=== PATIENT | female | born 1985 | race Caucasian/White ===

== ENCOUNTER 2020-06-30 15:46 | Emergency (ER) | payer MEDICAID, OTHER ==
[~2020-06-30] VITALS: Ht 172.7 cm; Wt 85.9 kg
[~2020-06-30 15:46] MED LIST: MECL12.575 PO; NORTRIPTYLINE PO; Prednisone PO; TYLE325T5 PO; [UNRECOGNIZED DRUG - CODE] PO; [UNRECOGNIZED DRUG - OTHER] PO
[2020-06-30 15:54] VITALS: BP 135/84
[2020-06-30] MEDS ORDERED: SERT50TA29 (15:59)
[2020-06-30] MEDS ORDERED: PROP10TA56 (15:59)
[2020-06-30] MEDS ORDERED: HYDR200T3 (15:59)
[2020-06-30] MEDS ORDERED: BUSP10TA (15:59)
[2020-06-30] MEDS ORDERED: CYCL-707 (15:59)
--- NOTE | 2020-06-30 16:38 | REP ---
INDICATION: pain, bruising COMPARISON: None. TECHNIQUE: Real time compression and duplex Doppler interrogation of the left lower extremity deep venous system is performed. FINDINGS: The left common femoral, superficial femoral and popliteal veins are fully compressible with transducer pressure and demonstrate normal spontaneous and phasic flow, without evidence of deep venous thrombosis. IMPRESSION: No evidence of deep venous thrombosis of the left lower extremity femoral popliteal venous system. <Electronically signed by Dexter Villanueva > 06/30/20 [id number]
[2020-06-30 17:13] LABS: BASO % 0.5 % (0.0-1.0); EOS # 0.2 10^3/uL (0.0-0.5); EOS % 3.1 % (0.0-3.0); HEMATOCRIT 41.6 % (36.0-47.0); HEMOGLOBIN 13.8 g/dl (12.0-15.5); LYMPH # 3.8 10^3/uL (1.5-5.0); LYMPH % 48.5 % (24.0-44.0); MEAN CORPUSCULAR HEMOGLOBIN 29.6 pg (27.0-33.0); MEAN CORPUSCULAR HGB CONC 33.2 g/dl (32.0-36.5); MEAN CORPUSCULAR VOLUME 89.3 fl (80.0-96.0); MONO # 0.5 10^3/uL (0.0-0.8); MONO % 6.5 % (2.0-8.0); NEUTROPHILS # 3.2 10^3/uL (1.5-8.5); NEUTROPHILS % 41.1 % (36.0-66.0); PLATELET COUNT, AUTOMATED 284 10^3/uL (150-450); RED BLOOD COUNT 4.66 10^6/uL (4.00-5.40); WHITE BLOOD COUNT 7.9 10^3/uL (4.0-10.0)
[2020-06-30 17:23] LABS: ALBUMIN 4.1 GM/DL (3.2-5.2); BILIRUBIN,TOTAL 0.8 MG/DL (0.2-1.0); CALCIUM LEVEL 9.2 MG/DL (8.5-10.1); CREATININE FOR GFR 1.12 MG/DL (0.55-1.30); GLOMERULAR FILTRATION RATE 58.6 (>60); POTASSIUM SERUM 3.9 MEQ/L (3.5-5.1); TOTAL PROTEIN 7.3 GM/DL (6.4-8.2)
[2020-06-30 17:25] LABS: PERCENT SATURATION 24.8 % (13.2-45.0)
[2020-06-30 17:31] LABS: INR 0.99; PROTHROMBIN TIME 13.3 SECONDS (12.5-14.3)
[2020-06-30 17:32] LABS: PARTIAL THROMBOPLASTIN TIME 26.9 SECONDS (24.2-38.5)
[2020-06-30 17:33] LABS: FOLATE 18.9 NG/ML (>5.4)
== END 2020-06-30 17:53 | disposition home or self-care (01) ==
LOC: M ED 15:46
DX: R23.3 Spontaneous ecchymoses (principal); R53.83 Other fatigue; G43.909 Migraine, unspecified, not intractable, without status migrainosus; Z88.0 Allergy status to penicillin; Z88.1 Allergy status to other antibiotic agents; Z88.5 Allergy status to narcotic agent; Z88.8 Allergy status to other drugs, medicaments and biological substances

== ENCOUNTER 2020-11-11 14:59 | Emergency (ER) | payer MEDICAID, OTHER ==
[~2020-11-11] VITALS: Ht 172.7 cm; Wt 79.7 kg
[~2020-11-11 14:59] MED LIST changes: +BUSP10TA; +CYCL-707; +HYDR200T3; +PROP10TA56; +SERT50TA29
[2020-11-11 15:49] LABS: BASO % 0.5 % (0.0-1.0); EOS # 0.2 10^3/uL (0.0-0.5); HEMATOCRIT 39.2 % (36.0-47.0); HEMOGLOBIN 13.1 g/dl (12.0-15.5); LYMPH # 2.4 10^3/uL (1.5-5.0); LYMPH % 32.8 % (24.0-44.0); MEAN CORPUSCULAR HEMOGLOBIN 30.4 pg (27.0-33.0); MEAN CORPUSCULAR HGB CONC 33.4 g/dl (32.0-36.5); MONO # 0.6 10^3/uL (0.0-0.8); MONO % 8.2 % (2.0-8.0); NEUTROPHILS # 4.2 10^3/uL (1.5-8.5); NEUTROPHILS % 56.2 % (36.0-66.0); PLATELET COUNT, AUTOMATED 245 10^3/uL (150-450); RED BLOOD COUNT 4.31 10^6/uL (4.00-5.40); WHITE BLOOD COUNT 7.4 10^3/uL (4.0-10.0)
[2020-11-11 16:13] LABS: HCG, SERUM QUALITATIVE NEGATIVE (NEGATIVE)
[2020-11-11 16:15] LABS: ALBUMIN 4.2 GM/DL (3.2-5.2); ALT/SGPT 31 U/L (12-78); BILIRUBIN,DIRECT 0.3 MG/DL (0.0-0.2); BLOOD UREA NITROGEN 18 MG/DL (7-18); CALCIUM LEVEL 9.3 MG/DL (8.5-10.1); CARBON DIOXIDE LEVEL 27 MEQ/L (21-32); CHLORIDE LEVEL 107 MEQ/L (98-107); CREATININE FOR GFR 1.05 MG/DL (0.55-1.30); GLOMERULAR FILTRATION RATE > 60.0 (>60); GLUCOSE, FASTING 82 MG/DL (70-100); LIPASE 197 U/L (73-393); POTASSIUM SERUM 3.8 MEQ/L (3.5-5.1); SODIUM LEVEL 140 MEQ/L (136-145); TOTAL PROTEIN 7.4 GM/DL (6.4-8.2)
[2020-11-11] MEDS ORDERED: ONDANSETRON 4 MG ORAL DISINTEGRATING TAB PO ONE (16:55)
[2020-11-11] MEDS ORDERED: KETOROLAC 60MG 2ML VIAL IM ONE (16:55)
--- NOTE | 2020-11-11 17:56 | REP ---
INDICATION: right flank pain, UTI per UA, r/o stone/pyelo. COMPARISON: CT 12/07/2012 TECHNIQUE: Bilateral renal sonography with color images over the bladder. FINDINGS: Sonographic evaluation shows the right kidney 11 x 5.7 x 6.1 cm. The left is 11.4 x 4.7 by 5.6 cm. Cortical echogenicity and thickness is normal on both sides. There is no hydronephrosis or hydroureter. I see no solid or cystic mass for either kidney nor echogenic foci to suggest a stone. No perinephric fluid. Bladder only partially filled but vigorous bilateral ureteral jets are observed. No layering debris or stones suggested in the bladder. IMPRESSION: 1. Kidneys of symmetric size and normal echogenicity. No hydronephrosis, mass, cyst, stone or perinephric fluid. No heterogeneous echotexture or asymmetric size to suggest pyelonephritis by sonography. 2. The bladder partially filled. Symmetric, vigorous bilateral ureteral jet phenomenon. No layered debris, stone or other significant finding visible. <Electronically signed by Lyle Cline > 11/11/20 [id number]
[2020-11-11] MEDS ORDERED: BACT800T5 PO (18:24)
[2020-11-11] MEDS ORDERED: REGL10TA6 PO (18:24)
[2020-11-11 18:33] VITALS: BP 139/91
== END 2020-11-11 18:38 | disposition home or self-care (01) ==
LOC: M ED 14:59
DX: N39.0 Urinary tract infection, site not specified (principal); R51.9 Headache, unspecified; M32.9 Systemic lupus erythematosus, unspecified; R06.02 Shortness of breath; Z79.899 Other long term (current) drug therapy; Z88.0 Allergy status to penicillin; Z88.1 Allergy status to other antibiotic agents; Z88.5 Allergy status to narcotic agent; Z88.8 Allergy status to other drugs, medicaments and biological substances
CPT/HCPCS: 76775; 80048; 80076; 81001; 83690; 84703; 85025; 87088; 87186; 96372; 99284; J1885; Q0162

== ENCOUNTER → 2021-04-06 | Outpatient (CLI) | payer OTHER ==
[~2021-04-06] MED LIST changes: +BACT800T5 PO; +REGL10TA6 PO
--- NOTE | 2021-04-06 09:40 | PFTRPT ---
Site: [facility], [address] [place] [address], [id number] ID: [id number] Name: VIELKA STOVER Visit Date: 04/06/2021 Second ID: [id number] Referring Doctor: Georgie Benavidez M.D. Reviewing Doctor: Philip Pham MD Folder Machine: Lois CANTU RRT Age: 36 : 1985 Sex: Female Race: Height: 68.00 Inches Weight: 157.00 Lbs BSA: 1.84 Order IDs: [id number] Requested Test(s): <RESP-PFT.PFT B/A> Diagnosis: M06.9 test meet the ATS standards for acceptability and repeatability. Pt was given four puffs of albuterol for post bronchodilator. Review Status: Not Reviewed Pre-Bronch Post-Bronch Pred Actual %Pred Actual %Chng SPIROMETRY FVC (L) 4.23 3.68 86 3.83 4 FEV1 (L) 3.46 3.07 88 3.23 5 FEV1/FVC (%) 83 83 100 84 1 FEF 25% (L/sec) 5.95 6.56 110 6.43 -1 FEF 50% (L/sec) 4.30 3.84 89 4.58 19 FEF 75% (L/sec) 1.74 1.45 83 1.87 29 FEF 25-75% (L/sec) 3.47 3.19 91 3.75 17 FEF Max (L/sec) 7.63 7.17 93 6.73 -6 FIVC (L) 3.40 3.51 3 FIF 50% (L/sec) 4.01 4.22 105 5.59 32 FIF Max (L/sec) 4.25 5.65 33 MVV (L/min) 113 102 90 Expiratory Time (sec) 7.04 6.35 -9 Back Extrap Vol (L) 0.11 0.12 1 Time To FEFmax (sec) 0.087 0.096 10 LUNG VOLUMES SVC (L) 3.93 3.68 93 IC (L) 2.50 1.80 71 ERV (L) 1.43 1.88 132 TGV (L) 3.15 3.36 106 RV (Pleth) (L) 1.73 1.47 85 TLC (Pleth) (L) 5.65 5.16 91 RV/TLC (Pleth) (%) 30 29 95 DIFFUSION DLCOunc (ml/min/mmHg) 25.81 19.67 76 DL/VA (ml/min/mmHg/L) 4.56 4.22 92 VA (L) 5.65 4.66 82 BHT (sec) 10.38 IVC (L) 3.45 TLC (SB) (L) 4.81 AIRWAYS RESISTANCE Raw (cmH2O/L/s) 1.86 1.39 74 Gaw (L/s/cmH2O) 1.03 0.72 70 sRaw (cmH2O*s) 4.76 4.29 90 sGaw (1/cmH2O*s) 0.20 0.23 114
--- NOTE | 2021-04-07 13:41 | ECHO ---
ECHOCARDIOGRAM DATE OF PROCEDURE: 04/06/2021 Age: 36 Gender: Female Height: 68 inches Weight: 157 pounds Body surface area: 1.84 m2 Outpatient. REFERRING PHYSICIAN: Case Benavidez M.D. INDICATION: Rheumatoid arthritis. MEASUREMENTS: 2D Measurements: RV - 4.0 cm LV - 4.3 cm Septum 0.9 cm Posterior wall 0.9 cm Aortic root 2.8 cm LA - 3.4 cm LVEF 75% Doppler Measurements: AV - 1.51 m/s LVOT - 1.1 m/s LVOT diameter 1.8 cm MV-E 98, A 71, E/A ratio 1.4. Early mitral deceleration time 215 msec E prime medial 8 A prime medial 7 E prime lateral 10.3 PV - 0.9 m/s Pulmonary artery acceleration time 123 msec PASP 27 mmHg IVC - 1.6 cm COMMENTS: Normal sinus rhythm without intraventricular conduction disturbance. M-mode and 2-dimensional echocardiography was performed with pulse, continuous wave, color flow, and tissue Doppler studies. Normal left ventricular size, wall thickness, and hyperkinetic wall motion. Normal left atrial size and Doppler assessment of LV diastolic and estimated mean left atrial pressure. Normal right chamber sizes and motion and estimated pulmonary arterial pressure. Normal IVC size and collapse against an elevated central venous pressure. Normal aortic dimensions. Three equal-sized aortic cusps of normal thickness with normal cusp separation. No insufficiency. Normal-appearing mitral valvular apparatus and leaflet excursion with no posterior systolic buckling. No apparent mitral insufficiency. Normal-appearing tricuspid valve with trace tricuspid insufficiency (physiologic). No apparent intracardiac mass or pericardial effusion.
== END ==
LOC: M CARPUL 08:05
PROVIDERS: ATTEND Pediatrics
DX: R01.1 Cardiac murmur, unspecified (principal); M06.9 Rheumatoid arthritis, unspecified

== ENCOUNTER → 2022-03-01 | Outpatient (REF) | payer OTHER ==
[2022-03-01 18:21] LABS: BASO % 0.5 % (0.0-1.0); EOS # 0.4 10^3/uL (0.0-0.5); EOS % 4.6 % (0.0-3.0); HEMATOCRIT 40.7 % (36.0-47.0); HEMOGLOBIN 13.2 g/dl (12.0-15.5); LYMPH % 36.3 % (24.0-44.0); MEAN CORPUSCULAR HEMOGLOBIN 29.1 pg (27.0-33.0); MEAN CORPUSCULAR HGB CONC 32.4 g/dl (32.0-36.5); MEAN CORPUSCULAR VOLUME 89.8 fl (80.0-96.0); MONO # 0.5 10^3/uL (0.0-0.8); MONO % 5.5 % (2.0-8.0); NEUTROPHILS # 4.4 10^3/uL (1.5-8.5); PLATELET COUNT, AUTOMATED 291 10^3/uL (150-450); RED BLOOD COUNT 4.53 10^6/uL (4.00-5.40); WHITE BLOOD COUNT 8.3 10^3/uL (4.0-10.0)
[2022-03-01 18:42] LABS: ERYTHROCYTE SEDIMENTATION RATE 8 mm/hr (0-20)
[2022-03-01 18:59] LABS: ALT/SGPT 25 U/L (12-78); BILIRUBIN,TOTAL 0.5 MG/DL (0.2-1.0); BLOOD UREA NITROGEN 24 MG/DL (7-18); CALCIUM LEVEL 9.2 MG/DL (8.5-10.1); CARBON DIOXIDE LEVEL 24 MEQ/L (21-32); CHLORIDE LEVEL 107 MEQ/L (98-107); CREATININE FOR GFR 0.96 MG/DL (0.55-1.30); GLOMERULAR FILTRATION RATE > 60.0 (>60); GLUCOSE, FASTING 82 MG/DL (70-100); POTASSIUM SERUM 4.2 MEQ/L (3.5-5.1); RHEUMATOID FACTOR QUANT < 10.0 IU/ML (<15.0); SODIUM LEVEL 140 MEQ/L (136-145); TOTAL PROTEIN 7.4 GM/DL (6.4-8.2)
== END ==
LOC: M LAB REF 17:39
PROVIDERS: ATTEND Pediatrics
DX: M32.9 Systemic lupus erythematosus, unspecified (principal)

== ENCOUNTER 2022-04-19 11:03 | Inpatient (IN) | payer MEDICAID, OTHER ==
[~2022-04-19 11:03] MED LIST changes: -CYCL-707; +CYCL-707 PO; -HYDR200T3; +HYDR200T3 PO
[2022-04-19 12:41] LABS: HEMATOCRIT 42.9 % (36.0-47.0); HEMOGLOBIN 14.1 g/dl (12.0-15.5); MEAN CORPUSCULAR HEMOGLOBIN 29.1 pg (27.0-33.0); MEAN CORPUSCULAR HGB CONC 32.9 g/dl (32.0-36.5); MEAN CORPUSCULAR VOLUME 88.5 fl (80.0-96.0); PLATELET COUNT, AUTOMATED 274 10^3/uL (150-450); RED BLOOD COUNT 4.85 10^6/uL (4.00-5.40); WHITE BLOOD COUNT 5.9 10^3/uL (4.0-10.0)
[2022-04-19 12:54] LABS: AMPHETAMINES LEVEL URINE NEGATIVE (NEGATIVE); BARBITURATES URINE NEGATIVE (NEGATIVE); BENZODIAZEPINES URINE NEGATIVE (NEGATIVE); CANNABINOIDS URINE NEGATIVE (NEGATIVE); COCAINE METABOLITE URINE NEGATIVE (NEGATIVE); METHADONE URINE NEGATIVE (NEGATIVE); OPIATES URINE NEGATIVE (NEGATIVE); PHENCYCLIDINE URINE NEGATIVE (NEGATIVE)
[2022-04-19 12:56] LABS: ETHYL ALCOHOL (ETHANOL) 0.003 % (0.000-0.010)
[2022-04-19 12:57] LABS: BILIRUBIN,DIRECT 0.2 MG/DL (<0.4); SALICYLATE LEVEL < 3.0 MG/DL (<30)
[2022-04-19 12:58] LABS: ACETAMINOPHEN LEVEL < 2.0 UG/ML (10.0-20.0); ALBUMIN 3.6 G/DL (3.2-5.2); ALKALINE PHOSPHATASE 55 U/L (46-116); ALT/SGPT 22 U/L (7.0-40); AST/SGOT 23 U/L (<34); BILIRUBIN,TOTAL 0.5 MG/DL (0.3-1.2); BLOOD UREA NITROGEN 22 MG/DL (9-23); CALCIUM LEVEL 9.1 MG/DL (8.5-10.1); CARBON DIOXIDE LEVEL 21 MMOL/L (20-31); CHLORIDE LEVEL 107 MMOL/L (98-107); CREATININE FOR GFR 0.96 MG/DL (0.55-1.30); GLOMERULAR FILTRATION RATE > 60.0 (>60); GLUCOSE, FASTING 76 MG/DL (60-100); POTASSIUM SERUM 3.9 MMOL/L (3.5-5.1); SODIUM LEVEL 138 MMOL/L (136-145); TOTAL PROTEIN 7.1 G/DL (5.7-8.2)
[2022-04-19 12:59] LABS: THYROID STIMULATING HORMONE 0.856 uIU/ML (0.55-4.78)
[2022-04-19 15:17] LABS: HCG, SERUM QUALITATIVE NEGATIVE (NEGATIVE)
[2022-04-19] MEDS ORDERED: PROPRANOLOL 10 MG TAB PO PRN (15:55)
[2022-04-19] MEDS ORDERED: hydrOXYzine 50 MG TAB PO PRN (15:55)
[2022-04-19] MEDS ORDERED: ACETAMINOPHEN TAB 650MG DOSE (2X325MG) PO PRN (15:55)
[2022-04-19] MEDS ORDERED: MAALOX 30 ML SUSP *UDC PO PRN (15:55)
[2022-04-19] MEDS ORDERED: traZODone 50 MG TAB PO PRN (15:55)
[2022-04-19] MEDS ORDERED: MOM 30ML SUSPENSION UDC PO PRN (15:55)
[2022-04-19 16:21] LABS: RSV AMPLIFICATION NEGATIVE (NEGATIVE)
[2022-04-19 17:27] VITALS: BP 139/97
[2022-04-20 06:36] VITALS: BP 118/64
[2022-04-20] MEDS ORDERED: ALL10TAB2 PO (11:03)
[2022-04-20] MEDS ORDERED: HOME MED LIST COMPLETE! XX SCH (11:10)
[2022-04-20] MEDS: SERTRALINE HCL 50 MG TAB PO SCH (11:30)
[2022-04-20] MEDS: busPIRone 10 MG TAB PO SCH ×2 (11:30→20:50)
[2022-04-20 18:04] VITALS: BP 142/94
[2022-04-20] MEDS ORDERED: RAMELTEON 8 MG TAB (ROZEREM) PO SCH (21:00)
[2022-04-20] MEDS ORDERED: HYDROXYCHLOROQUINE 200 MG TAB PO SCH (21:00)
[2022-04-21 06:30] VITALS: BP 114/68
[2022-04-21] MEDS: SERTRALINE HCL 50 MG TAB PO SCH (08:11)
[2022-04-21] MEDS: busPIRone 10 MG TAB PO SCH (08:11)
[2022-04-21] MEDS ORDERED: RAME8TAB2 PO (09:50)
[2022-04-21] MEDS ORDERED: SERT50TA29 PO (09:50)
[2022-04-21] MEDS ORDERED: BUSP10TA PO (09:50)
== END 2022-04-21 11:17 | disposition home or self-care (01) | DRG 754 ==
LOC: M ED 11:03 → M ED INP 15:54 → M PSY 17:22
PROVIDERS: ADMIT Psychiatry & Neurology Psychiatry; ATTEND Psychiatry & Neurology Psychiatry
DX: F32.A Depression, unspecified (principal); F41.9 Anxiety disorder, unspecified; Z88.0 Allergy status to penicillin; Z88.5 Allergy status to narcotic agent; Z88.8 Allergy status to other drugs, medicaments and biological substances; Z79.899 Other long term (current) drug therapy; R21 Rash and other nonspecific skin eruption; L93.0 Discoid lupus erythematosus

== ENCOUNTER → 2023-03-06 | Outpatient (REF) | payer MEDICAID ==
[~2023-03-06] MED LIST changes: +ALL10TAB2 PO; +BUSP10TA PO; -HYDR200T3 PO; +HYDR200T46 PO; +RAME8TAB2 PO; +SERT50TA29 PO
[2023-03-06 16:57] LABS: BASO % 0.4 % (0.0-1.0); EOS # 0.3 10^3/uL (0.0-0.5); EOS % 3.9 % (0.0-3.0); HEMATOCRIT 41.4 % (36.0-47.0); HEMOGLOBIN 13.8 g/dl (12.0-15.5); LYMPH # 2.4 10^3/uL (1.5-5.0); LYMPH % 34.3 % (24.0-44.0); MEAN CORPUSCULAR HEMOGLOBIN 30.1 pg (27.0-33.0); MEAN CORPUSCULAR HGB CONC 33.3 g/dl (32.0-36.5); MEAN CORPUSCULAR VOLUME 90.4 fl (80.0-96.0); MONO # 0.5 10^3/uL (0.0-0.8); MONO % 6.9 % (2.0-8.0); NEUTROPHILS # 3.8 10^3/uL (1.5-8.5); NEUTROPHILS % 54.4 % (36.0-66.0); PLATELET COUNT, AUTOMATED 265 10^3/uL (150-450); RED BLOOD COUNT 4.58 10^6/uL (4.00-5.40); WHITE BLOOD COUNT 6.9 10^3/uL (4.0-10.0)
[2023-03-06 17:25] LABS: ALBUMIN 4.2 G/DL (3.2-5.2); ALKALINE PHOSPHATASE 66 U/L (46-116); ALT/SGPT 17 U/L (7.0-40); AST/SGOT 15 U/L (<34); BILIRUBIN,TOTAL 1.1 MG/DL (0.3-1.2); BLOOD UREA NITROGEN 16 MG/DL (9-23); CALCIUM LEVEL 9.7 MG/DL (8.5-10.1); CARBON DIOXIDE LEVEL 26 MMOL/L (20-31); CHLORIDE LEVEL 109 MMOL/L (98-107); CHOLESTEROL LEVEL 214 MG/DL (<200); CHOLESTEROL RISK RATIO 2.79 (<5); CREATININE FOR GFR 0.83 MG/DL (0.55-1.30); GLOMERULAR FILTRATION RATE > 60.0 (>60); GLUCOSE, FASTING 78 MG/DL (60-100); HDL CHOLESTEROL 76.5 MG/DL (>40); LDL CHOLESTEROL 119.5 MG/DL (<100); NON-HDL-C 137.5 MG/DL; POTASSIUM SERUM 4.4 MMOL/L (3.5-5.1); SODIUM LEVEL 141 MMOL/L (136-145); TOTAL PROTEIN 7.5 G/DL (5.7-8.2); TRIGLYCERIDES LEVEL 90 MG/DL (<150)
[2023-03-06 17:27] LABS: THYROID STIMULATING HORMONE 0.857 uIU/ML (0.55-4.78)
== END ==
LOC: M LAB REF 15:59
PROVIDERS: ATTEND Pediatrics
DX: E78.5 Hyperlipidemia, unspecified (principal); M32.9 Systemic lupus erythematosus, unspecified

== ENCOUNTER → 2023-05-30 | Outpatient (REF) | payer MEDICAID ==
[2023-05-30 18:38] LABS: BASO % 0.5 % (0.0-1.0); EOS # 0.2 10^3/uL (0.0-0.5); EOS % 3.7 % (0.0-3.0); HEMATOCRIT 40.6 % (36.0-47.0); HEMOGLOBIN 13.5 g/dl (12.0-15.5); LYMPH # 2.4 10^3/uL (1.5-5.0); LYMPH % 36.8 % (24.0-44.0); MEAN CORPUSCULAR HGB CONC 33.3 g/dl (32.0-36.5); MEAN CORPUSCULAR VOLUME 90.2 fl (80.0-96.0); MONO # 0.5 10^3/uL (0.0-0.8); MONO % 7.2 % (2.0-8.0); NEUTROPHILS # 3.4 10^3/uL (1.5-8.5); NEUTROPHILS % 51.5 % (36.0-66.0); PLATELET COUNT, AUTOMATED 251 10^3/uL (150-450); WHITE BLOOD COUNT 6.6 10^3/uL (4.0-10.0)
[2023-05-30 18:44] LABS: ERYTHROCYTE SEDIMENTATION RATE 14 mm/hr (0-20)
[2023-05-30 18:50] LABS: C REACTIVE PROTEIN QUANTITATIV < 0.40 MG/DL (<1.0)
[2023-05-30 18:51] LABS: ALBUMIN 3.8 G/DL (3.2-5.2); ALKALINE PHOSPHATASE 56 U/L (46-116); ALT/SGPT 18 U/L (7.0-40); AST/SGOT 11 U/L (<34); BILIRUBIN,TOTAL 1.1 MG/DL (0.3-1.2); BLOOD UREA NITROGEN 25 MG/DL (9-23); CALCIUM LEVEL 9.1 MG/DL (8.5-10.1); CARBON DIOXIDE LEVEL 26 MMOL/L (20-31); CHLORIDE LEVEL 109 MMOL/L (98-107); CREATININE FOR GFR 0.96 MG/DL (0.55-1.30); GLOMERULAR FILTRATION RATE > 60.0 (>60); GLUCOSE, FASTING 81 MG/DL (60-100); POTASSIUM SERUM 4.6 MMOL/L (3.5-5.1); SODIUM LEVEL 140 MMOL/L (136-145); TOTAL PROTEIN 6.9 G/DL (5.7-8.2)
[2023-05-30 18:54] LABS: RHEUMATOID FACTOR QUANT < 3.5 IU/ML (<14)
== END ==
LOC: M LAB REF 17:42
PROVIDERS: ATTEND Pediatrics
DX: M32.9 Systemic lupus erythematosus, unspecified (principal)

== ENCOUNTER → 2023-08-28 | Outpatient (REF) | payer OTHER ==
[2023-08-28 23:02] LABS: APPEARANCE, URINE HAZY (CLEAR); BACTERIA, URINE AUTO NEGATIVE (NEGATIVE); BILIRUBIN, URINE AUTO NEGATIVE (NEGATIVE); BLOOD, URINE BLOOD NEGATIVE (NEGATIVE); COLOR, URINE YELLOW (YELLOW); GLUCOSE, URINE (UA) AUTO NEGATIVE (NEGATIVE); KETONE, URINE AUTO NEGATIVE (NEGATIVE); LEUKOCYTE ESTERASE, URINE AUTO NEGATIVE (NEGATIVE); MUCUS, URINE SMALL (NEGATIVE); NITRITE, URINE AUTO NEGATIVE (NEGATIVE); PROTEIN, URINE AUTO NEGATIVE (NEGATIVE); RBC, URINE AUTO 0 /HPF (0-3); SPECIFIC GRAVITY URINE AUTO 1.013 (1.002-1.035); SQUAMOUS EPITHELIAL CELL UR AU 1 /HPF (0-6); UROBILINOGEN, URINE AUTO 0.2 mg/dL (0.0-2.0); WBC, URINE AUTO 5 /HPF (0-3)
== END ==
LOC: M LAB REF 22:20
PROVIDERS: ATTEND Physician Assistant Medical
DX: N39.0 Urinary tract infection, site not specified (principal)

== ENCOUNTER → 2023-09-24 | Outpatient (REF) | payer OTHER ==
[2023-09-24 16:30] LABS: APPEARANCE, URINE CLEAR (CLEAR); BACTERIA, URINE AUTO 1+ (NEGATIVE); BILIRUBIN, URINE AUTO NEGATIVE (NEGATIVE); BLOOD, URINE BLOOD NEGATIVE (NEGATIVE); COLOR, URINE YELLOW (YELLOW); GLUCOSE, URINE (UA) AUTO NEGATIVE (NEGATIVE); KETONE, URINE AUTO NEGATIVE (NEGATIVE); LEUKOCYTE ESTERASE, URINE AUTO NEGATIVE (NEGATIVE); NITRITE, URINE AUTO NEGATIVE (NEGATIVE); PROTEIN, URINE AUTO NEGATIVE (NEGATIVE); RBC, URINE AUTO 0 /HPF (0-3); SQUAMOUS EPITHELIAL CELL UR AU 4 /HPF (0-6); UROBILINOGEN, URINE AUTO 0.2 mg/dL (0.0-2.0); WBC, URINE AUTO 1 /HPF (0-3)
[2023-09-24 18:44] LABS: Trichomonas vaginalis (AMP) NOT DETECTED (NEGATIVE)
[2023-09-24 19:07] LABS: GC DNA AMPLIFICATION NEGATIVE (NEGATIVE)
== END ==
LOC: M LAB REF 16:18
PROVIDERS: ATTEND Pediatrics
DX: N89.8 Other specified noninflammatory disorders of vagina (principal)

== ENCOUNTER → 2024-02-21 | Outpatient (REF) | payer OTHER ==
[2024-02-21 18:34] LABS: APPEARANCE, URINE HAZY (CLEAR); BACTERIA, URINE AUTO 1+ (NEGATIVE); BILIRUBIN, URINE AUTO NEGATIVE (NEGATIVE); BLOOD, URINE BLOOD NEGATIVE (NEGATIVE); COLOR, URINE AMBER (YELLOW); GLUCOSE, URINE (UA) AUTO NEGATIVE (NEGATIVE); KETONE, URINE AUTO TRACE mg/dL (NEGATIVE); LEUKOCYTE ESTERASE, URINE AUTO TRACE (NEGATIVE); MUCUS, URINE SMALL (NEGATIVE); NITRITE, URINE AUTO NEGATIVE (NEGATIVE); PROTEIN, URINE AUTO NEGATIVE (NEGATIVE); RBC, URINE AUTO 0 /HPF (0-3); SPECIFIC GRAVITY URINE AUTO 1.026 (1.002-1.035); SQUAMOUS EPITHELIAL CELL UR AU 3 /HPF (0-6); WBC, URINE AUTO 10 /HPF (0-3)
== END ==
LOC: M LAB REF 16:58
PROVIDERS: ATTEND Physician Assistant Medical
DX: N39.0 Urinary tract infection, site not specified (principal)

== ENCOUNTER → 2024-04-11 | Outpatient (REF) | payer OTHER ==
[2024-04-11 17:10] LABS: BASO # 0.1 10^3/uL (0.0-0.2); BASO % 0.6 % (0.0-1.0); EOS # 0.1 10^3/uL (0.0-0.5); EOS % 1.6 % (0.0-3.0); HEMATOCRIT 44.1 % (36.0-47.0); HEMOGLOBIN 14.8 g/dl (12.0-15.5); LYMPH % 37.1 % (24.0-44.0); MEAN CORPUSCULAR HEMOGLOBIN 30.6 pg (27.0-33.0); MEAN CORPUSCULAR HGB CONC 33.6 g/dl (32.0-36.5); MEAN CORPUSCULAR VOLUME 91.3 fl (80.0-96.0); MONO # 0.4 10^3/uL (0.0-0.8); MONO % 5.3 % (2.0-8.0); NEUTROPHILS # 4.4 10^3/uL (1.5-8.5); NEUTROPHILS % 55.1 % (36.0-66.0); PLATELET COUNT, AUTOMATED 320 10^3/uL (150-450); RED BLOOD COUNT 4.83 10^6/uL (4.00-5.40)
[2024-04-11 17:21] LABS: ERYTHROCYTE SEDIMENTATION RATE 12 mm/hr (0-20)
[2024-04-11 17:22] LABS: APPEARANCE, URINE CLEAR (CLEAR); BACTERIA, URINE AUTO NEGATIVE (NEGATIVE); BILIRUBIN, URINE AUTO NEGATIVE (NEGATIVE); BLOOD, URINE BLOOD NEGATIVE (NEGATIVE); COLOR, URINE STRAW (YELLOW); GLUCOSE, URINE (UA) AUTO NEGATIVE (NEGATIVE); KETONE, URINE AUTO TRACE mg/dL (NEGATIVE); LEUKOCYTE ESTERASE, URINE AUTO NEGATIVE (NEGATIVE); MUCUS, URINE SMALL (NEGATIVE); NITRITE, URINE AUTO NEGATIVE (NEGATIVE); PROTEIN, URINE AUTO NEGATIVE (NEGATIVE); RBC, URINE AUTO 0 /HPF (0-3); SPECIFIC GRAVITY URINE AUTO 1.008 (1.002-1.035); SQUAMOUS EPITHELIAL CELL UR AU 1 /HPF (0-6); UROBILINOGEN, URINE AUTO 0.2 mg/dL (0.0-2.0); WBC, URINE AUTO 0 /HPF (0-3)
[2024-04-11 17:34] LABS: CREATININE,RANDOM URINE 30.5 MG/DL
[2024-04-11 17:38] LABS: ALBUMIN 4.5 G/DL (3.2-5.2); ALKALINE PHOSPHATASE 59 U/L (35-104); ALT/SGPT 29 U/L (7.0-40); AST/SGOT 21 U/L (<34); BLOOD UREA NITROGEN 17 MG/DL (9-23); C REACTIVE PROTEIN QUANTITATIV < 0.50 MG/DL (<1.0); CALCIUM LEVEL 10.1 MG/DL (8.5-10.1); CARBON DIOXIDE LEVEL 25 MMOL/L (20-31); CHLORIDE LEVEL 102 MMOL/L (98-107); COMPLEMENT C3 120.5 MG/DL (90.0-170.0); COMPLEMENT C4 25.2 MG/DL (12-36); CREATININE FOR GFR 0.83 MG/DL (0.55-1.30); GLOMERULAR FILTRATION RATE > 60.0 (>58); GLUCOSE, FASTING 73 MG/DL (60-100); SODIUM LEVEL 139 MMOL/L (136-145); TOTAL PROTEIN 8.6 G/DL (5.7-8.2)
[2024-04-11 17:42] LABS: TOTAL PROTEIN,RANDOM URINE < 6.0 MG/DL (0.0-14.0)
== END ==
LOC: M SFHCRHEU 14:51
PROVIDERS: ATTEND Internal Medicine Rheumatology
DX: M35.9 Systemic involvement of connective tissue, unspecified (principal); Z79.899 Other long term (current) drug therapy

== ENCOUNTER 2024-07-07 10:58 | Emergency (ER) | payer OTHER ==
[~2024-07-07] VITALS: Ht 162.6 cm; Wt 69.5 kg
[2024-07-07] MEDS ORDERED: ALBU8.5H (11:22)
[2024-07-07 11:43] LABS: BASO % 0.5 % (0.0-1.0); EOS # 0.1 10^3/uL (0.0-0.5); EOS % 0.6 % (0.0-3.0); HEMATOCRIT 42.6 % (36.0-47.0); HEMOGLOBIN 14.2 g/dl (12.0-15.5); LYMPH # 1.3 10^3/uL (1.5-5.0); LYMPH % 16.3 % (24.0-44.0); MEAN CORPUSCULAR HEMOGLOBIN 30.7 pg (27.0-33.0); MEAN CORPUSCULAR HGB CONC 33.3 g/dl (32.0-36.5); MONO # 0.4 10^3/uL (0.0-0.8); MONO % 5.2 % (2.0-8.0); NEUTROPHILS # 5.9 10^3/uL (1.5-8.5); NEUTROPHILS % 76.8 % (36.0-66.0); PLATELET COUNT, AUTOMATED 210 10^3/uL (150-450); RED BLOOD COUNT 4.63 10^6/uL (4.00-5.40); WHITE BLOOD COUNT 7.7 10^3/uL (4.0-10.0)
[2024-07-07 12:07] LABS: HCG, SERUM QUALITATIVE NEGATIVE (NEGATIVE)
[2024-07-07 12:09] LABS: BLOOD UREA NITROGEN 14 MG/DL (9-23); CARBON DIOXIDE LEVEL 24 MMOL/L (20-31); CHLORIDE LEVEL 105 MMOL/L (98-107); CREATININE FOR GFR 0.94 MG/DL (0.55-1.30); GLOMERULAR FILTRATION RATE > 60.0 (>58); GLUCOSE, FASTING 112 MG/DL (60-100); POTASSIUM SERUM 3.4 MMOL/L (3.5-5.1); SODIUM LEVEL 140 MMOL/L (136-145)
[2024-07-07 12:56] LABS: KETONE, URINE AUTO RFX NEGATIVE (NEGATIVE); MUCUS, URINE RFX SMALL (NEGATIVE); RBC, URINE AUTO RFX 24 /HPF (0-3); SQUAM EPITHELIAL CELL UR AURFX 2 /HPF (0-6)
[2024-07-07 12:57] LABS: LEUKOCYTE ESTERASE UR AUTO RFX 2+ (NEGATIVE); NITRITE, URINE AUTO RFX POSITIVE (NEGATIVE); WBC, URINE AUTO RFX TNTC /HPF (0-3)
[2024-07-07] MEDS ORDERED: CIPR-249 PO (13:09)
[2024-07-07 13:16] VITALS: BP 123/81; TEMP 101.6; O2SAT 97
[2024-07-07] MEDS: CIPROFLOXACIN 500MG TABLET PO ONE (13:19)
[2024-07-07] MEDS: ACETAMINOPHEN 325 MG TAB PO ONE (13:26)
== END 2024-07-07 16:46 | disposition home or self-care (01) ==
LOC: M ED 10:58
DX: N39.0 Urinary tract infection, site not specified (principal); Z79.52 Long term (current) use of systemic steroids; Z79.2 Long term (current) use of antibiotics; Z88.0 Allergy status to penicillin; Z88.1 Allergy status to other antibiotic agents; Z88.2 Allergy status to sulfonamides; Z88.5 Allergy status to narcotic agent; Z88.8 Allergy status to other drugs, medicaments and biological substances

== ENCOUNTER 2024-11-24 09:52 | Emergency (ER) | payer OTHER ==
[~2024-11-24] VITALS: Ht 172.7 cm; Wt 69.0 kg
[~2024-11-24 09:52] MED LIST changes: +ALBU8.5H; +CIPR-249 PO
[2024-11-24] MEDS: NS 500 ML IV ONE (11:33)
[2024-11-24] MEDS: KETOROLAC 30 MG/ML 1 ML VIAL IV ONE (11:34)
[2024-11-24] MEDS: diphenhydrAMINE 50 MG/ML VIAL IV STA (11:34)
[2024-11-24 13:19] VITALS: BP 123/76; TEMP 97.2; O2SAT 100
== END 2024-11-24 13:22 | disposition home or self-care (01) ==
LOC: M ED 09:52
DX: R51.9 Headache, unspecified (principal); Z88.0 Allergy status to penicillin; Z88.1 Allergy status to other antibiotic agents; Z88.2 Allergy status to sulfonamides; Z88.5 Allergy status to narcotic agent; Z88.8 Allergy status to other drugs, medicaments and biological substances; Z79.52 Long term (current) use of systemic steroids; Z79.2 Long term (current) use of antibiotics; Z79.899 Other long term (current) drug therapy
CPT/HCPCS: 96361; 96374; 99284; J1200; J1885; J2765

== ENCOUNTER → 2024-12-01 | Outpatient (CLI) | payer OTHER | LOC: M WHC 14:47 | PROVIDERS: ATTEND Student in an Organized Health Care Education/Training Program | DX: R92.313 Mammographic fatty tissue density, bilateral breasts (principal) ==

== ENCOUNTER → 2025-01-19 | Outpatient (CLI) | payer OTHER ==
[2025-01-19 17:29] LABS: BASO # 0.1 10^3/uL (0.0-0.2); BASO % 0.9 % (0.0-1.0); EOS # 0.2 10^3/uL (0.0-0.5); EOS % 2.8 % (0.0-3.0); LYMPH # 2.6 10^3/uL (1.5-5.0); LYMPH % 35.1 % (24.0-44.0); MONO # 0.6 10^3/uL (0.0-0.8); MONO % 7.8 % (2.0-8.0); NEUTROPHILS # 4.0 10^3/uL (1.5-8.5); NEUTROPHILS % 53.3 % (36.0-66.0); PLATELET COUNT, AUTOMATED 318 10^3/uL (150-450)
[2025-01-19 17:36] LABS: ERYTHROCYTE SEDIMENTATION RATE 7 mm/hr (0-20)
[2025-01-19 17:48] LABS: TOTAL PROTEIN,RANDOM URINE 13.5 MG/DL (0.0-14.0)
[2025-01-19 17:53] LABS: APPEARANCE, URINE HAZY (CLEAR); BACTERIA, URINE AUTO 1+ (NEGATIVE); BILIRUBIN, URINE AUTO NEGATIVE (NEGATIVE); BLOOD, URINE BLOOD NEGATIVE (NEGATIVE); GLUCOSE, URINE (UA) AUTO NEGATIVE (NEGATIVE); KETONE, URINE AUTO NEGATIVE (NEGATIVE); LEUKOCYTE ESTERASE, URINE AUTO NEGATIVE (NEGATIVE); MUCUS, URINE SMALL (NEGATIVE); NITRITE, URINE AUTO POSITIVE (NEGATIVE); PROTEIN, URINE AUTO NEGATIVE (NEGATIVE); RBC, URINE AUTO 0 /HPF (0-3); SPECIFIC GRAVITY URINE AUTO 1.021 (1.002-1.035); SQUAMOUS EPITHELIAL CELL UR AU 5 /HPF (0-6); UROBILINOGEN, URINE AUTO 0.2 mg/dL (0.0-2.0); WBC, URINE AUTO 1 /HPF (0-3)
[2025-01-19 17:53] LABS: ALT/SGPT 20 U/L (7.0-40); AST/SGOT 18 U/L (<34); C REACTIVE PROTEIN QUANTITATIV < 0.50 MG/DL (<1.0); CALCIUM LEVEL 9.1 MG/DL (8.5-10.1); CARBON DIOXIDE LEVEL 25 MMOL/L (20-31); CHLORIDE LEVEL 106 MMOL/L (98-107); COMPLEMENT C4 25.3 MG/DL (12-36); CREATININE FOR GFR 0.98 MG/DL (0.55-1.30); GLOMERULAR FILTRATION RATE 74.8 (>58); POTASSIUM SERUM 4.0 MMOL/L (3.5-5.1); SODIUM LEVEL 141 MMOL/L (136-145)
== END ==
LOC: M LAB 16:21
PROVIDERS: ATTEND Internal Medicine Rheumatology
DX: M35.9 Systemic involvement of connective tissue, unspecified (principal); Z79.899 Other long term (current) drug therapy